=== PATIENT | female | born 1955 | race Caucasian/White ===

== ENCOUNTER → 2016-07-13 | Day surgery (SDC) | payer BC ==
[~2016-07-13] VITALS: Ht 167.6 cm; Wt 66.9 kg
== END | disposition disaster alternative care site (69) ==
LOC: GPOC 07-07 10:00 → GEND 08:56 → GPOC 10:00
PROC: 0DB58ZX Excision of Esophagus, Via Natural or Artificial Opening Endoscopic, Diagnostic (ICD-10-PCS; principal; 2016-07-13)
PROC: 0DB98ZX Excision of Duodenum, Via Natural or Artificial Opening Endoscopic, Diagnostic (ICD-10-PCS; 2016-07-13)
PROC: 0DBK8ZZ Excision of Ascending Colon, Via Natural or Artificial Opening Endoscopic (ICD-10-PCS; 2016-07-13)
PROC: 0DBP8ZZ Excision of Rectum, Via Natural or Artificial Opening Endoscopic (ICD-10-PCS; 2016-07-13)
DX: D12.2 Benign neoplasm of ascending colon (principal); K62.1 Rectal polyp; K22.70 Barrett's esophagus without dysplasia; K31.89 Other diseases of stomach and duodenum; Z88.2 Allergy status to sulfonamides; Z90.710 Acquired absence of both cervix and uterus; Z98.890 Other specified postprocedural states
CPT/HCPCS: J7030